=== PATIENT | male | born 1965 | race Caucasian/White ===

== ENCOUNTER 2021-07-21 12:57 | Emergency (ER) | payer SELFPAY ==
[2021-07-21 13:09] VITALS: O2SAT 98
[2021-07-21] MEDS ORDERED: Adacel Vial IM ONE ×2 (13:31→13:34)
[2021-07-21] MEDS ORDERED: KEFLEX 500 MG PO ONE (13:31)
--- NOTE | 2021-07-21 13:31 | ERPHSYRPT ---
- History of Present Illness Time Seen by Provider: 07/21/21 13:12 Source: patient Exam Limitations: no limitations Patient Subjective Stated Complaint: "I hurt my thumb." Triage Nursing Assessment: PT presented alert and oriented X 3, skin wpd Pt ambulates with an upright steady gait, able to speak in clear full sentences pt thumb on his right hand has been cut off. no bleeding. 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 He declines reattachment surgery or attempts to retrieve the remaining amputated thumb from the scene after discussion including that he will will therefore lose that function permanently , but initally did not wish this effort. later he wished to go back and get it and proceed to the [facility] where there is a hand surgeon - ( not available at today. not in town) There are exposed tissues at the stump requiring treatment with revision. Occurred: just prior to arrival Method of Injury: incised Quality: sharpness Severity of Pain-Max: moderate Severity of Pain-Current: moderate Extremities Pain Location: thumb: right Modifying Factors: Improves With: nothing Associated Symptoms: none Allergies/Adverse Reactions: No Known Drug Allergies Allergy (Verified 07/21/21 13:09) Home Medications: No Reportable Medications [No Reported Medications] 07/21/21 [History] Hx Tetanus, Diphtheria Vaccination/Date Given: No Hx Influenza Vaccination/Date Given: No Hx Pneumococcal Vaccination/Date Given: No Immunizations Up to Date: Yes Travel Risk - International Travel Have you traveled outside of the country in past 3 weeks: No - Coronavirus Screening Are you exhibiting any of the following symptoms?: No Close contact with a COVID-19 positive Pt in past 14-21 Days: No - Vaccine Status Have you recieved a Covid-19 vaccination: No - Review of Systems Constitutional: No Fever, No Chills Eyes: No Symptoms Ears, Nose, & Throat: No Symptoms Respiratory: No Cough, No Dyspnea Cardiac: No Chest Pain, No Edema, No Syncope Abdominal/Gastrointestinal: No Abdominal Pain, No Nausea, No Vomiting, No Diarrhea Genitourinary Symptoms: No Dysuria Musculoskeletal: Other (amputation right thumb), No Back Pain, No Neck Pain Skin: No Rash Neurological: No Dizziness, No Focal Weakness, No Sensory Changes Psychological: No Symptoms Endocrine: No Symptoms All Other Systems: Reviewed and Negative - Past Medical History Pertinent Past Medical History: No - Past Surgical History Past Surgical History: No - Social History Smoking Status: Never smoker Exposure to second hand smoke: No Drug Use: none Patient Lives Alone: Yes - Nursing Vital Signs Nursing Vital Signs: Initial Vital Signs Temperature 97.2 F 07/21/21 13:03 Pulse Rate 92 H 07/21/21 13:03 Respiratory Rate 20 07/21/21 13:03 Blood Pressure 173/112 07/21/21 13:03 O2 Sat by Pulse Oximetry 98 07/21/21 13:03 Pain Scale Pain Intensity 0 - Physical Exam General Appearance: no apparent distress, alert Eyes, Ears, Nose, Throat Exam: moist mucous membranes Neck Exam: non-tender, supple Cardiovascular/Respiratory Exam: chest non-tender, normal breath sounds, regular rate/rhythm, no respiratory distress Abdominal Exam: non-tender, No guarding Back Exam: normal inspection, No vertebral tenderness Shoulder Exam: normal inspection, non-tender, no evidence of injury, normal ROM Elbow/Forearm Exam: normal inspection, non-tender, no evidence of injury, normal ROM Wrist Exam: normal inspection, non-tender, no evidence of injury, normal ROM Hand Exam: laceration (amputation at right thumb prox phalanxe ) DTR - Upper Extremity Exam: bicep (R): 2+, bicep (L): 2+, tricep (R): 2+, tricep (L): 2+ Neuro/Tendon Exam: normal sensation, normal motor functions Mental Status Exam: alert, oriented x 3, cooperative Skin Exam: normal color, warm, dry SpO2: 98 - Course Nursing assessment & vital signs reviewed: No - Progress Progress: improved, re-examined Progress Note: 07/21/21 13:57 pt initially declined re-implantation, but later changed his mind and wishes to attempt to retrieve the amputated part and proceed on his own to [facility] for eval and possible re-implantation or revision surgery now. TH surgeon was not in town. He understands risks and that probably not a good outcome but has the capacity for this choice and prefers not to wait for formal transport; or consultation. He has the capacity to make this choice , and this may be his best chance since we are still awaiting the surgeon to return the call. Sterile dressing applied and hemostasis achieved. 07/21/21 14:[address] Other (Dr. Gregorio - [facility]) - Departure Departure Disposition: Home Clinical Impression: Amputation finger, Thumb amputee Condition: Good Critical Care Time: No Referrals: MATEO HUA [Primary Care Provider] - Follow up/PCP as directed Instructions: Amputation of the Finger or Fingertip (DC) Additional Instructions: Go straight to ER with the amputated thumb in the container on ice, and proceed to the [facility] for the hand surgeon - in ER. Do not eat or drink anything on the way. return meantime if any problems or you change your mind.
[2021-07-21] MEDS ORDERED: KEFLEX 500 MG ONE (13:36)
[2021-07-21 14:03] VITALS: BP 170/98; PULSE 90
[2021-07-21] MEDS ORDERED: TYLENOL EXTRA STRENGTH 500 MG PO PRN (14:11)
[2021-07-21] MEDS ORDERED: TYLENOL EXTRA STRENGTH 500 MG ONE (14:11)
== END 2021-07-21 14:24 | disposition home or self-care (01) ==
LOC: ED 12:57
DX: S68.511A Complete traumatic transphalangeal amputation of right thumb, initial encounter (principal)
CPT/HCPCS: 90471; 90715; 99284; A9270-GY

== ENCOUNTER 2023-09-06 10:12 | Emergency (ER) | payer OTHER ==
[2023-09-06 10:18] VITALS: TEMP 97.2
--- NOTE | 2023-09-06 10:23 | ERPHSYRPT ---
- History of Present Illness Time Seen by Provider: 09/06/23 10:23 Source: patient, EMS, other (X stepdaughter) Exam Limitations: clinical condition Patient Subjective Stated Complaint: PT states "I do not know what is going on.". EMS stated "he was over on the porch of his neighbors and told them he was having trouble breathing. he is in no distress, but he is confused." Triage Nursing Assessment: PT presented looking around and confused. PT able to move all extremities without difficulty but does not know what day, month or year it is or where he is." Physician History: This is a 58-year-old overweight white male who was at a neighbor's porch and was very confused. At that time, he mentioned to his neighbor that he was having shortness of breath and not feeling well. Ambulance/paramedics were contacted and they brought him into the emergency department. Patient was agitated and moving all his extremities. He kept wanting to get up and leave. Patient was having confused conversation. He did denies shortness of breath. He did deny abdominal pain. He did deny chest pain. Timing/Duration: today Severity: moderate Character of Deficits: impaired speech, other (Confused conversation) Baseline/Normal Cognition: alert oriented x 3 Current Cognition: alert but confused Baseline Gait: walks w/o assistance Associated Symptoms: confusion (Patient unable to provide us any type of medical history) Allergies/Adverse Reactions: No Known Drug Allergies Allergy (Verified 07/21/21 13:09) Home Medications: No Reportable Medications [No Reported Medications] 07/21/21 [History] Hx Tetanus, Diphtheria Vaccination/Date Given: No Hx Influenza Vaccination/Date Given: No Hx Pneumococcal Vaccination/Date Given: No Immunizations Up to Date: No Travel Risk - International Travel Have you traveled outside of the country in past 3 weeks: No - Coronavirus Screening Are you exhibiting any of the following symptoms?: No Close contact with a COVID-19 positive Pt in past 14-21 Days: No - Vaccine Status Have you recieved a Covid-19 vaccination: No - Review of Systems Constitutional: Other (Unable to provide) Eyes: Other (Unable to provide) Ears, Nose, & Throat: Other (Unable to provide) Respiratory: No Dyspnea Cardiac: No Chest Pain Abdominal/Gastrointestinal: No Abdominal Pain Genitourinary Symptoms: Other (Unable to provide) Skin: No Other Neurological: Other (Obvious confusion but and able to provide us any information) Psychological: Anxiety (Appears anxious and confused) Endocrine: Other Hematologic/Lymphatic: Other (Unable to provide) Immunological/Allergic: Other (Unable to provide) All Other Systems: Unable due to condition - Past Medical History Pertinent Past Medical History: No Psycho-Social History: Other (Chronic alcohol abuse per ex stepdaughter) - Past Surgical History Past Surgical History: No - Social History Smoking Status: Never smoker Exposure to second hand smoke: No Drug Use: none Patient Lives Alone: Yes - Nursing Vital Signs Nursing Vital Signs: Initial Vital Signs Temperature 97.2 F 09/06/23 10:13 Pulse Rate 89 09/06/23 10:13 Respiratory Rate 20 09/06/23 10:13 Blood Pressure 125/102 09/06/23 10:13 O2 Sat by Pulse Oximetry 97 09/06/23 10:13 Pain Scale Pain Intensity 0 - Briggs Coma Scale Best Eye Response (Christiane): (4) open spontaneously Best Verbal Response (Briggs): (4) confused conversation Best Motor Response (Christiane): (6) obeys commands Christiane Total: 14 - Physical Exam General Appearance: mild distress, anxiety, obese Eye Exam: bilateral eye: normal inspection, PERRL, EOMI Ears, Nose, Throat Exam: normal ENT inspection, moist mucous membranes Neck Exam: normal inspection, non-tender, supple, full range of motion Respiratory: normal breath sounds, lungs clear, airway intact, No chest tenderness, No respiratory distress Cardiovascular: regular rate/rhythm, normal heart sounds, normal peripheral pulses Gastrointestinal: soft, normal bowel sounds, No tenderness Rectal Exam: not done Back Exam: normal inspection, normal range of motion, No CVA tenderness, No vertebral tenderness Extremity Exam: normal inspection, normal range of motion, pelvis stable Mental Status: alert, agitated, other (Many words are not comprehensible) nicu rn Exam: normal hearing Coordination/Gait: normal gait, normal cerebellar function Motor/Sensory: no motor deficit, no sensory deficit Skin Exam: normal color, warm, dry SpO2 Interpretation: normal SpO2: 97 O2 Delivery: Room Air - Course Nursing assessment & vital signs reviewed: Yes Ordered Tests: Active Orders 24 hr Category Date Time Status Garbage Collector STAT Care 09/06/23 10:40 Active EKG-ER Only STAT Care 09/06/23 10:39 Active IV Insertion STAT Care 09/06/23 10:39 Active NPO (ED) STAT Care 09/06/23 10:39 Active Pulse Oximetry (ED) STAT Care 09/06/23 10:39 Active HEAD WITHOUT CONTRAST [CT] Stat Exams 09/06/23 10:40 Completed BLOOD CULTURE Stat Lab 09/06/23 12:35 Received CBC W DIFF Stat Lab 09/06/23 11:02 Completed CMP Stat Lab 09/06/23 11:02 Completed ETHYL ALCOHOL Stat Lab 09/06/23 11:02 Completed Lactic Acid Stat Lab 09/06/23 11:00 Completed MAGNESIUM Stat Lab 09/06/23 11:02 Completed UA W/RFX UR CULTURE Stat Lab 09/06/23 10:39 Ordered Urine Triage Profile Stat Lab 09/06/23 Ordered Medication Summary Generic Name Dose Route Start Last Admin Trade Name Freq PRN Reason Stop Dose Admin Sodium Chloride 1,000 mls @ 100 mls/hr 09/06/23 10:45 Sodium Chloride 0.9% 1000 Ml IV 10/06/23 10:44 .Q10H CHANCE Discontinued Medications Generic Name Dose Route Start Last Admin Trade Name Freq PRN Reason Stop Dose Admin Haloperidol Lactate 2.5 mg 09/06/23 11:09 09/06/23 11:14 Haloperidol Lactate 5 Mg/Ml Vial IV 09/06/23 11:10 2.5 mg STAT ONE Administration Haloperidol Lactate Confirm 09/06/23 11:13 Haloperidol Lactate 5 Mg/Ml Vial Administered 09/06/23 11:14 Dose 5 mg .ROUTE .STK-MED ONE Haloperidol Lactate 2.5 mg 09/06/23 11:44 09/06/23 11:46 Haloperidol Lactate 5 Mg/Ml Vial IV 09/06/23 11:45 2.5 mg STAT ONE Administration Haloperidol Lactate Confirm 09/06/23 11:45 Haloperidol Lactate 5 Mg/Ml Vial Administered 09/06/23 11:46 Dose 5 mg .ROUTE .STK-MED ONE Lab/Rad Data: Laboratory Result Diagrams 09/06/23 11:02 09/06/23 11:02 Laboratory Results 09/06/23 09/06/23 09/06/23 Range/Units 11:02 11:02 11:02 WBC 10.1 (4.0-10.5) x10^3/uL RBC 5.31 (4.1-5.6) x10^6/uL Hgb 17.0 (12.5-18.0) g/dL Hct 49.8 (42-50) % MCV 93.8 (78-100) fL MCH 32.0 (26-32) pg MCHC 34.1 (32-36) g/dL RDW 13.5 (11.5-14.0) % Plt Count 263 (150-450) x10^3/uL MPV 8.0 (7.5-11.0) fL Gran % 72.7 H (36.0-66.0) % Immature Gran % (Auto) 0.4 (0.00-0.4) % Nucleat RBC Rel Count 0.0 (0.00-0.1) % Eos # (Auto) 0.09 (0-0.5) x10^3/uL Immature Gran # (Auto) 0.04 H (0.00-0.03) x10^3u/L Absolute Lymphs (auto) 1.83 (1.0-4.6) x10^3/uL Absolute Monos (auto) 0.74 (0.0-1.3) x10^3/uL Absolute Nucleated RBC 0.00 (0.00-0.01) x10^3u/L Lymphocytes % 18.2 L (24.0-44.0) % Monocytes % 7.3 (0.0-12.0) % Eosinophils % 0.9 (0.00-5.0) % Basophils % 0.5 (0.0-0.4) % Absolute Granulocytes 7.32 H (1.4-6.9) x10^3/uL Basophils # 0.05 (0-0.4) x10^3/uL Sodium 135 L (137-145) mmol/L Potassium 3.8 (3.5-5.1) mmol/L Chloride 105 (98-107) mmol/L Carbon Dioxide 22 (22-30) mmol/L Anion Gap 12.1 (5-15) MEQ/L BUN 11 (9-20) mg/dL Creatinine 0.86 (0.66-1.25) mg/dL Estimated GFR 99.1 ML/MIN Glucose 116 H (74-106) mg/dL Lactic Acid (0.4-2.0) Calcium 9.2 (8.4-10.2) mg/dL Magnesium 2.2 (1.6-2.3) mg/dL Total Bilirubin 1.20 (0.2-1.3) mg/dL AST 63 H (17-59) U/L ALT 33 (0-50) U/L Alkaline Phosphatase 86 (38-126) U/L Ammonia < 9 L (9-30) umol/L Serum Total Protein 7.4 (6.3-8.2) g/dL Albumin 4.2 (3.5-5.0) g/dL Ethyl Alcohol < 10 (0-10) mg/dL 09/06/23 Range/Units 11:00 WBC (4.0-10.5) x10^3/uL RBC (4.1-5.6) x10^6/uL Hgb (12.5-18.0) g/dL Hct (42-50) % MCV (78-100) fL MCH (26-32) pg MCHC (32-36) g/dL RDW (11.5-14.0) % Plt Count (150-450) x10^3/uL MPV (7.5-11.0) fL Gran % (36.0-66.0) % Immature Gran % (Auto) (0.00-0.4) % Nucleat RBC Rel Count (0.00-0.1) % Eos # (Auto) (0-0.5) x10^3/uL Immature Gran # (Auto) (0.00-0.03) x10^3u/L Absolute Lymphs (auto) (1.0-4.6) x10^3/uL Absolute Monos (auto) (0.0-1.3) x10^3/uL Absolute Nucleated RBC (0.00-0.01) x10^3u/L Lymphocytes % (24.0-44.0) % Monocytes % (0.0-12.0) % Eosinophils % (0.00-5.0) % Basophils % (0.0-0.4) % Absolute Granulocytes (1.4-6.9) x10^3/uL Basophils # (0-0.4) x10^3/uL Sodium (137-145) mmol/L Potassium (3.5-5.1) mmol/L Chloride (98-107) mmol/L Carbon Dioxide (22-30) mmol/L Anion Gap (5-15) MEQ/L BUN (9-20) mg/dL Creatinine (0.66-1.25) mg/dL Estimated GFR ML/MIN Glucose (74-106) mg/dL Lactic Acid 1.0 (0.4-2.0) Calcium (8.4-10.2) mg/dL Magnesium (1.6-2.3) mg/dL Total Bilirubin (0.2-1.3) mg/dL AST (17-59) U/L ALT (0-50) U/L Alkaline Phosphatase (38-126) U/L Ammonia (9-30) umol/L Serum Total Protein (6.3-8.2) g/dL Albumin (3.5-5.0) g/dL Ethyl Alcohol (0-10) mg/dL - Progress Progress: unchanged Progress Note: 09/06/23 12:38 This patient's medical issue is 1 of high complexity. Level of complexity and the workup performed is based on review of the patient's past medical history, review of the patient's medication list, review of the patient's drug allergy list, history present illness and physical findings on examination. This patient's workup is extensive and includes placement of intravenous line, twelve-lead EKG, urinalysis, troponin level, CT scan of the head, CBC, CMP, blood alcohol level, urine triage drug screen, ammonia level. Patient is very agitated and we will provide him with Haldol intravenously. 09/06/23 12:41 We were having difficulty obtaining any type of history from this patient. Jazmin dang, we contacted the EMS hospice home health aide service and found out his place of work and ultimately his ex stepdaughter arrived to the emergency department and was able to provide us some additional, independent history. The patient, per her report, is a chronic alcoholic. She was not sure whether or not he was on any medications. She was going to contact her mother. Her mother and this patient were for approximately 14 years. Our in-house radiologist, Dr. You, called to report his interpretation of the CAT scan of the head. There is predominantly left temporal lobe acute ischemia with acute intraparenchymal hemorrhage with a 4 to 5 mm midline shift. This patient will need to be transferred to a specialty facility. Call has been made to [facility] in [place]. We will have to transfer this patient via ground. There is no air transport secondary to weather conditions. 09/06/23 12:46 09/06/23 13:08 I spoke with [facility] neurosurgeon Dr. Samm Wilson. He reviewed the CT scan of the head study. He thinks there might actually be a tumor present. He accepts the patient in transfer. We are transferring the patient ER to ER. We are attempting to secure ground transportation at this time. Counseled pt/family regarding: lab results, diagnosis, rad results Medical Desision Making - Independent Historian Additional History obtained from: Family (Ex stepdaughter) - Diagnostic Testing Diagnostic test were ordered, analyzed, and reviewed by me: Yes Radiological Interpretation: Reviewed by me, Teleradiologist Report - Risk of complications The pt has a high risk of morbidity or mortality based on: Decision regarding hospitilization or escalation of hosp level of care - Departure Departure Disposition: Home Clinical Impression: Intracranial hemorrhage Condition: Critical Critical Care Time: Yes Critical Care Time(excluding separately billable procedures): Critical 30-74 mins (60 minutes) Referrals: MATEO HUA [Primary Care Provider] - Follow up/PCP as directed
[2023-09-06] MEDS ORDERED: Sodium Chloride 0.9% 1000 ML 1,000 ML IV SCH (10:45)
[2023-09-06] MEDS ORDERED: Haldol 5 MG IV ONE ×2 (11:09→11:44)
[2023-09-06 11:11] LABS: Absolute Neutrophil Ct (ANC) 7.32 x10^3/uL (1.4-6.9); BASOPHIL % 0.5 % (0.0-0.4); Basophil (Absolute #) 0.05 x10^3/uL (0-0.4); Eosinophil % 0.9 % (0.00-5.0); Eosinophil (Absolute #) 0.09 x10^3/uL (0-0.5); Hematocrit 49.8 % (42-50); IMMATURE GRAN # 0.04 x10^3u/L (0.00-0.03); IMMATURE GRAN % 0.4 % (0.00-0.4); Lymphocyte (Absolute #) 1.83 x10^3/uL (1.0-4.6); Lymphocytes % 18.2 % (24.0-44.0); Mean Cell Volume 93.8 fL (78-100); Mean Corpuscular Hgb Concent. 34.1 g/dL (32-36); Monocyte (Absolute #) 0.74 x10^3/uL (0.0-1.3); Monocytes % 7.3 % (0.0-12.0); Neutrophil % 72.7 % (36.0-66.0); Platelet Count 263 x10^3/uL (150-450); Red Blood Count 5.31 x10^6/uL (4.1-5.6); Red Cell Distribution Width 13.5 % (11.5-14.0); White Blood Count 10.1 x10^3/uL (4.0-10.5)
[2023-09-06] MEDS ORDERED: Haldol 5 MG ONE ×2 (11:13→11:45)
[2023-09-06 11:29] LABS: ALBUMIN 4.2 g/dL (3.5-5.0); ALKALINE PHOSPHATASE 86 U/L (38-126); ANION GAP 12.1 MEQ/L (5-15); BLOOD UREA NITROGEN 11 mg/dL (9-20); CHLORIDE 105 mmol/L (98-107); Calcium 9.2 mg/dL (8.4-10.2); Carbon Dioxide 22 mmol/L (22-30); Creatinine 1 0.86 mg/dL (0.66-1.25); EST GLOMERULAR FILTRATION RATE 99.1 ML/MIN; ETHYL ALCOHOL < 10 mg/dL (0-10); Glucose 116 mg/dL (74-106); MAGNESIUM 2.2 mg/dL (1.6-2.3); Potassium 3.8 mmol/L (3.5-5.1); SGOT/AST 63 U/L (17-59); SGPT/ALT 33 U/L (0-50); SODIUM 135 mmol/L (137-145); Total Protein 7.4 g/dL (6.3-8.2)
--- NOTE | 2023-09-06 12:41 | XRAY ---
Indication: Altered loss of consciousness. Multiple contiguous axial images obtained through the head without contrast. Comparison: None Majority left temporal lobe demonstrates diffuse cortical/subcortical hypoattenuation, probable cytotoxic edema favoring ischemia. Acute intraparenchymal hemorrhage seen anteriorly measuring at least 2.7 x 2.2 x 3.2 cm probably from luxury reperfusion. Approximately 4-5 mm midline shifting. Fourth ventricle is midline without hydrocephalus. Bony calvarium intact. Minimal mucosal thickening both ethmoid sinuses. Mastoid air cells are clear. Impression: 1. Predominantly left temporal lobe acute ischemia with acute intraparenchymal hemorrhage and minimal midline shifting as detailed. 2. Incidental minimal paranasal sinus disease. Comment: Telephone report given to ordering clinician, Dr. Coelho at 1234 hrs. on September 06, 2023.
[2023-09-06 13:56] VITALS: O2SAT 96
[2023-09-06 14:11] VITALS: BP 133/94; PULSE 98; RESP 18
== END 2023-09-06 14:37 | disposition short-term general hospital (02) ==
LOC: ED 10:12
DX: I62.9 Nontraumatic intracranial hemorrhage, unspecified (principal); R41.0 Disorientation, unspecified; R06.02 Shortness of breath
CPT/HCPCS: 36000; 36415; 70450; 80053; 82077; 82140; 83605; 83735; 85025; 87040; 93041; 94760; 96374; 96376; 99285; 99291; J1630